=== PATIENT | male | born 2000 | race Caucasian/White ===

== ENCOUNTER 2021-05-10 17:58 | Emergency (ER) | payer OTHER ==
[~2021-05-10 17:58] MED LIST: ZANTAC150 MG PO
[2021-05-11] MEDS ORDERED: PRILOSEC20 MG PO (02:06)
[2021-05-11 02:13] LABS: BASOPHIL 0.7 % (0-2); EOSINOPHIL 1.9 % (0-5); HCT 46.1 % (42.0-52.0); HGB 15.8 g/dl (13.2-18.0); LYMPHOCYTE 54.4 % (15-48); MCH 29.2 pg (25.0-31.0); MCHC 34.3 g/dL (32.0-36.0); MCV 85.1 fL (78.0-100.0); MONOCYTE 5.8 % (0-12); MPV 10.7 fL (6.0-9.5); NEUTROPHIL 37.1 % (41-80); NRBC 0; PLT 210 K/uL (150-400); RBC 5.42 M/uL (4.70-6.00); RDW 12.3 % (11.5-14.0)
[2021-05-11 02:23] LABS: ALBUMIN 4.4 g/dL (3.4-5.0); BILIRUBIN - TOTAL 0.4 mg/dL (0.2-1.0); BUN/CREAT RATIO (CALC) 16.3 RATIO; CREATININE 1.04 mg/dL (0.67-1.17); GLOBULIN (CALCULATION) 2.5 g/dL; POTASSIUM 3.8 mmol/L (3.5-5.1); TOTAL PROTEIN 6.9 g/dL (6.4-8.2)
== END 2021-05-11 02:20 | disposition home or self-care (01) ==
LOC: FER 17:58
PROVIDERS: Emergency Medicine
DX: K21.9 Gastro-esophageal reflux disease without esophagitis (principal); R07.89 Other chest pain
CPT/HCPCS: 36415; 71045; 80053; 84484; 85025; 85379; 93005

== ENCOUNTER → 2022-01-04 | Day surgery (SDC) | payer OTHER ==
[~2022-01-04] VITALS: Ht 180.3 cm; Wt 81.6 kg
[~2022-01-04] MED LIST changes: +IBUPROFEN200 M1 PO; +PRILOSEC20 MG PO
[2022-01-04 09:28] LABS: HCT 47.4 % (42.0-52.0); HGB 16.1 g/dl (13.2-18.0); MCH 28.9 pg (25.0-31.0); MCV 85.1 fL (78.0-100.0); MPV 10.4 fL (6.0-9.5); RBC 5.57 M/uL (4.70-6.00); RDW 12.7 % (11.5-14.0); WBC 4.9 K/uL (4.0-10.5)
[2022-01-04 10:01] LABS: ALBUMIN 4.2 g/dL (3.4-5.0); BILIRUBIN - TOTAL 0.5 mg/dL (0.2-1.0); BUN/CREAT RATIO (CALC) 19.8 RATIO; CREATININE 0.96 mg/dL (0.67-1.17); GLOBULIN (CALCULATION) 3.1 g/dL; POTASSIUM 4.1 mmol/L (3.5-5.1); TOTAL PROTEIN 7.3 g/dL (6.4-8.2)
== END | disposition home or self-care (01) ==
LOC: FAS 07:34
PROVIDERS: Surgery
DX: K31.9 Disease of stomach and duodenum, unspecified (principal); K21.9 Gastro-esophageal reflux disease without esophagitis; Z87.891 Personal history of nicotine dependence
CPT/HCPCS: 36415; 80053; J2250; J2704; J7120